=== PATIENT | male | born 1950 | race Caucasian/White ===

== ENCOUNTER 2017-06-26 09:41 | Outpatient (CLI) | payer MEDICARE ==
[2017-06-26 10:42] LABS: Hemoglobin 16.2 g/dL (14.0-18.0); Mean Corpuscular HGB CONC 34.2 g/dL (32.0-36.0); Mean Corpuscular Volume 93.8 fl (80.0-94.0); Mean Platelet Volume 7.9 fL (7.4-10.4); Platelet Count 133 thou/uL (130-400); RBC Distribution Width 12.5 % (11.5-14.5); Red Blood Cell (RBC) Count 5.05 mill/uL (4.70-6.10); White Blood Cell (WBC) Count 6.3 thou/uL (4.8-10.8)
[2017-06-26 10:48] LABS: PTT 31.5 SEC (22.9-36.1)
[2017-06-26 11:11] LABS: Anion Gap 15 mmol/L (10-20); BUN (Urea Nitrogen) 21 mg/dL (8.4-25.7); Calc. Creatinine Clearance 0 mL/min (70-130); Calcium 10.3 mg/dL (7.8-10.44); Carbon Dioxide 22 mmol/L (23-31); Chloride 105 mmol/L (98-107); Estimated GFR-MDRD 77; Glucose 98 mg/dL (80-115); Potassium 4.5 mmol/L (3.5-5.1); Sodium 137 mmol/L (136-145)
--- NOTE | 2017-06-26 23:45 | EKG ---
Test Reason : Blood Pressure : / mmHG Vent. Rate : 061 BPM Atrial Rate : 061 BPM P-R Int : 176 ms QRS Dur : 092 ms QT Int : 410 ms P-R-T Axes : 047 081 -01 degrees QTc Int : 412 ms Normal sinus rhythm Cannot rule out Anterior infarct , age undetermined Abnormal ECG No previous ECGs available Confirmed by Jeanna ALONSO ([id number]) on 06/26/2017 11:44:59 PM Referred By: NAJMA Confirmed By:Jeanna ALONSO
== END 2017-06-26 09:42 | disposition home or self-care (01) ==
LOC: LABBT 09:41
PROVIDERS: ATTEND Surgery
DX: Z01.810 Encounter for preprocedural cardiovascular examination (principal); Z01.812 Encounter for preprocedural laboratory examination
CPT/HCPCS: 80048; 85027; 85610; 85730; 93005; 93010

== ENCOUNTER 2017-07-03 08:55 | Day surgery (SDC) | payer MEDICARE ==
[2017-06-26 09:55] VITALS: BMI 33.9
[2017-07-03] MEDS ORDERED: CEFAZOLIN/Water 2 GM/20 ML SYRINGE ONE (10:21)
[2017-07-03] MEDS ORDERED: Famotidine/PF 20 mg/2ml Vial ONE (12:13)
[2017-07-03] MEDS ORDERED: Sodium Chloride 0.9% 10 ML ONE (12:23)
[2017-07-03] MEDS ORDERED: Thrombin 5000 UNITS/5 ML VIAL ONE (12:23)
[2017-07-03] MEDS ORDERED: Bacitracin Zinc Ointment 30 gm TUBE ONE (12:23)
[2017-07-03] MEDS ORDERED: Fentanyl 250 MCG/5 ML VIAL ONE (12:32)
[2017-07-03] MEDS ORDERED: Meperidine HCl/PF 25 MG/ML VIAL SLOW IVP PRN (13:46)
[2017-07-03] MEDS ORDERED: Ondansetron HCl/PF 4 MG/2 ML Vial IVP PRN ×2 (13:46→15:42)
[2017-07-03] MEDS ORDERED: Promethazine HCl 25 MG/ML VIAL SLOW IVP PRN (13:46)
[2017-07-03] MEDS ORDERED: Promethazine HCl 25 MG/ML VIAL IM PRN ×2 (13:46→15:42)
[2017-07-03] MEDS ORDERED: Morphine Sulfate 2 MG/ML SYRINGE SLOW IVP PRN (13:46)
[2017-07-03] MEDS ORDERED: HYDROmorphone 2 MG/ML VIAL SLOW IVP PRN (13:46)
[2017-07-03] MEDS ORDERED: ePHEDrine/0.9% NaCl/PF SYRINGE 50 mg/10 ml ONE (15:11)
[2017-07-03] MEDS ORDERED: Glycopyrrolate 0.2 MG/ML 5 ML SYRINGE ONE (15:11)
[2017-07-03] MEDS ORDERED: Dexamethasone 20 MG/5 ML VIAL ONE (15:11)
[2017-07-03] MEDS ORDERED: Lidocaine 1% PF 5 ML VIAL ONE (15:11)
[2017-07-03] MEDS ORDERED: Ondansetron HCl/PF 4 MG/2 ML Vial ONE (15:11)
[2017-07-03] MEDS ORDERED: Propofol 200 MG/20 ML VIAL ONE (15:11)
[2017-07-03] MEDS ORDERED: PHENYLEPHRINE-NS 100 MCG/ML 10 ML SYRINGE ONE (15:11)
[2017-07-03] MEDS ORDERED: tiZANidine HCl 4 MG TAB PO PRN (15:42)
[2017-07-03] MEDS ORDERED: Milk Of Magnesia 30 ML UDCUP PO PRN (15:42)
[2017-07-03] MEDS ORDERED: Fleet Enema 133 ML BOT PR PRN (15:42)
[2017-07-03] MEDS ORDERED: traMADol HCl 50 MG TAB PO PRN (15:42)
[2017-07-03] MEDS ORDERED: Bisacodyl 10 MG SUPP PR PRN (15:42)
[2017-07-03] MEDS ORDERED: Acetaminophen/Codeine 30-300mg Tablet PO PRN (15:42)
[2017-07-03] MEDS ORDERED: Mag-Al 1200 mg/1200 mg/30 ML UDCUP PO PRN (15:42)
[2017-07-03] MEDS ORDERED: Acetaminophen 325 MG TAB PO PRN ×2 (15:42→19:10)
[2017-07-03] MEDS ORDERED: Fentanyl 100 MCG/2 ML VIAL ONE ×2 (16:25→17:42)
[2017-07-03] MEDS ORDERED: CEFAZOLIN/Water 2 GM/20 ML SYRINGE SLOW IVP SCH (18:00)
[2017-07-03] MEDS: CEFAZOLIN/Water 2 GM/20 ML SYRINGE SLOW IVP SCH (20:10)
[2017-07-03] MEDS: Sodium Chloride 0.9% 1,000 ML IV SCH (20:16)
[2017-07-03] MEDS: HYDROcodone/Acetaminophen 7.5/325 mg Tablet PO PRN (21:39)
[2017-07-04] MEDS: CEFAZOLIN/Water 2 GM/20 ML SYRINGE SLOW IVP SCH (05:20)
[2017-07-04] MEDS: Sodium Chloride 0.9% 1,000 ML IV SCH (05:21)
[2017-07-04] MEDS: HYDROcodone/Acetaminophen 7.5/325 mg Tablet PO PRN (07:23)
[2017-07-04 08:39] VITALS: TEMP 97.4
[2017-07-04] MEDS ORDERED: Multivitamin W/ Minerals 1 TAB PO SCH (09:00)
[2017-07-04] MEDS ORDERED: Bisoprolol Fumarate 5 MG TAB PO SCH (09:00)
[2017-07-04] MEDS ORDERED: Furosemide 20 MG TAB PO SCH (09:00)
[2017-07-04] MEDS ORDERED: Losartan 25 MG TAB PO SCH (09:00)
[2017-07-04] MEDS ORDERED: Potassium Chloride 10 MEQ TAB PO SCH (09:00)
[2017-07-04] MEDS ORDERED: Ascorbic Acid 500 mg Chewable Tablet PO SCH (09:00)
[2017-07-04 12:28] VITALS: BP 111/61
--- NOTE | 2017-07-04 13:43 | PRG ---
DATE OF SERVICE: 07/04/2017 Mr. Cardenas is doing well postoperative day 1 from multilevel lumbar decompression. He has had impro vement in his leg pain. He has good strength in his lower extremities. We will plan on dismissal to day. We went over intraoperative and postoperative issues and there have been no wound issues.
--- NOTE | 2017-07-05 14:20 | OP ---
DATE OF PROCEDURE: 07/03/2017 SURGEON: Kameron Grant M.D. GAS CUTTER: Harvey Sterling PA-C. PREPROCEDURE DIAGNOSIS: Multilevel lumbar stenosis. POSTPROCEDURE DIAGNOSIS: Multilevel lumbar stenosis. PROCEDURE: L2-L3, L3-L4, L4-L5 laminectomies, partial facetectomies, foraminotomies over the L2, L3, L4, L5 nerve roots bilaterally. DESCRIPTION OF PROCEDURE: After informed consent was obtained from the patient, the patient was brou ght to the OR. Proper patient pause and identification was carried out. He was positioned prone. A linear tuan was drawn out and he was sterilely cleansed, prepared, and draped. Proper patient pause and identification was carried out. The wound was then opened with a combination of sharp, monopola r and blunt dissection, the L2, L3, L4, L5 dorsal spines lamina were exposed. Localization film conf irmed our area of interest. We then performed an L2, L3, L4, L5 laminectomies, partial facetectomies , foraminotomies, L2, L3, L4 L5 nerve roots. Satisfied with our decompression copious irrigation occ urred throughout. Hemostasis was maximized. The wound was closed in anatomic layers. The patient sony deras emerged from anesthesia.
== END 2017-07-04 12:50 | disposition home or self-care (01) ==
LOC: SDC 08:55 → SURG A 18:19 → SDC 07-04 12:50
PROVIDERS: ATTEND Surgery
PROC: 00NY0ZZ Release Lumbar Spinal Cord, Open Approach (ICD-10-PCS; principal; 2017-07-03)
DX: M48.062 Spinal stenosis, lumbar region with neurogenic claudication (principal); Z90.49 Acquired absence of other specified parts of digestive tract; Z96.642 Presence of left artificial hip joint; Z98.890 Other specified postprocedural states
CPT/HCPCS: 76001; A4216; J0131; J1100; J2001; J2270; J2405; J2704; J3010; J3370; J3490; S0028